=== PATIENT | female | born 1965 | race Caucasian/White ===

== ENCOUNTER 2016-11-15 16:29 | Emergency (ER) | payer SELFPAY ==
[~2016-11-15] VITALS: Ht 154.9 cm; Wt 55.1 kg
[~2016-11-15 16:29] MED LIST: AMOXICILLIN875 MG PO; CIPRO500 MG PO; CYMBALTA; FLAGYL500 MG PO; PERCOCET 5/31 TABLET PO; PHENERGAN; PREDNISONE20 M1 PO; PREVACID PO; PREVACID30 MG PO; PROMETHAZINE HC25 M1 PO; SYNTHROID PO; ZOFRAN4 MG PO
[2016-11-15 17:14] LABS: HEMATOCRIT 37.5 % (36.0-46.0); MCH 28.9 PG (29.0-34.0); MCHC 33.6 G/DL (30.0-36.0); MEAN PLAT.VOLUME 11.3 uM^3 (9.5-12.4); PLATELET COUNT 332 K/uL (156-360); RBC DIS.WIDTH-CV 12.9 % (11.8-14.6); RBC DIS.WIDTH-SD 40.5 % (39-53); RED BLOOD COUNT 4.36 M/uL (3.80-5.20); WHITE BLOOD COUNT 12.4 K/uL (4.1-10.2)
[2016-11-15 17:20] LABS: ADD MIUA? YES; BILIRUBIN NEGATIVE; BLOOD MODERATE; COLOR YELLOW ((YELLOW)); GLUCOSE (STRIP) NEGATIVE; KETONES NEGATIVE; LEUKOCYTES NEGATIVE; NITRITE NEGATIVE; PROTEIN (STRIP) NEGATIVE; SPECIFIC GRAVITY 1.023 (1.000-1.030); UROBILINOGEN 0.2 MG/DL (0.2-1.0)
[2016-11-15 17:24] LABS: CHLORIDE 103 mEq/L (99-109); SODIUM 139 mEq/L (136-147)
[2016-11-15 17:27] LABS: GLUCOSE 99 mg/dL (70-99)
[2016-11-15 17:28] LABS: ANION GAP 12 MEQ/L (2-14); TOTAL BILIRUBIN 0.2 mg/dL (0.0-1.0)
[2016-11-15 17:30] LABS: ALKALINE PHOSPHATASE 104 IU/L (3-129); GFR ESTIMATE (CALCULATED) > 59 mL/min/
[2016-11-15 17:31] LABS: UREA NITROGEN (BUN) 13 mg/dL (9-23)
[2016-11-15 17:32] LABS: BACTERIA NONE SEEN /HPF; EPITHELIAL CELLS 1+ /HPF; MUCUS TRACE /LPF; UCUL ADDED? NO; WHITE BLOOD CELLS 0-5 /HPF (0-5)
[2016-11-15 17:34] LABS: LIPASE 44 U/L (1.0-51.0)
[2016-11-15 17:39] LABS: QUANTITATIVE HCG 4.1 MIU/ML
[2016-11-15] MEDS ORDERED: PREDNISONE10 MG PO (19:05)
[2016-11-15] MEDS ORDERED: PERCOCET 5/31 TABLET PO (19:05)
[2016-11-15] MEDS ORDERED: VALIUM5 MG PO (19:05)
[2016-11-15 19:31] VITALS: BP 121/78
== END 2016-11-15 19:33 | disposition home or self-care (01) ==
LOC: EME 16:29
DX: M54.9 Dorsalgia, unspecified (principal); J44.9 Chronic obstructive pulmonary disease, unspecified; G43.909 Migraine, unspecified, not intractable, without status migrainosus; K21.9 Gastro-esophageal reflux disease without esophagitis; F17.200 Nicotine dependence, unspecified, uncomplicated; Z88.8 Allergy status to other drugs, medicaments and biological substances
CPT/HCPCS: 80053; 81003; 83690; 84702; 85027; 99281; 99283; J1885; J7512

== ENCOUNTER 2017-05-11 16:09 | Inpatient (IN) | payer SELFPAY ==
[~2017-05-11] VITALS: Ht 167.6 cm; Wt 59.8 kg
[~2017-05-11 16:09] MED LIST changes: +PREDNISONE10 MG PO; +VALIUM5 MG PO
[2017-05-11 16:49] LABS: HEMATOCRIT 39.6 % (36.0-46.0); HEMOGLOBIN 13.5 G/DL (11.9-15.5); MCH 29.3 PG (29.0-34.0); MCHC 34.1 G/DL (30.0-36.0); MCV 86.1 FL (83-99); PLATELET COUNT 345 K/uL (156-360); RBC DIS.WIDTH-CV 13.1 % (11.8-14.6); RBC DIS.WIDTH-SD 40.8 % (39-53); WHITE BLOOD COUNT 13.8 K/uL (4.1-10.2)
[2017-05-11 17:03] LABS: ALBUMIN 4.3 g/dL (3.2-4.8); CHLORIDE 105 mEq/L (99-109); POTASSIUM 4.3 mEq/L (3.7-5.4); SODIUM 139 mEq/L (136-147)
[2017-05-11 17:05] LABS: GLUCOSE 184 mg/dL (70-99); TOTAL PROTEIN 7.5 g/dL (6.4-8.3)
[2017-05-11 17:07] LABS: TOTAL BILIRUBIN 0.2 mg/dL (0.0-1.0)
[2017-05-11 17:08] LABS: ALKALINE PHOSPHATASE 113 IU/L (3-129)
[2017-05-11 17:08] LABS: APPEARANCE CLEAR ((CLEAR)); BILIRUBIN NEGATIVE; BLOOD MODERATE; COLOR YELLOW ((YELLOW)); GLUCOSE (STRIP) 50; KETONES NEGATIVE; LEUKOCYTES NEGATIVE; NITRITE NEGATIVE; PROTEIN (STRIP) NEGATIVE; SPECIFIC GRAVITY 1.011 (1.000-1.030); UROBILINOGEN 0.2 MG/DL (0.2-1.0)
[2017-05-11 17:09] LABS: BACTERIA RARE /HPF; EPITHELIAL CELLS RARE /HPF; MUCUS TRACE /LPF; RED BLOOD CELLS 0-5 /HPF (0-5); UCUL ADDED? NO; WHITE BLOOD CELLS 0-5 /HPF (0-5)
[2017-05-11 17:09] LABS: CREATININE 1.3 mg/dL (0.6-1.3); GFR ESTIMATE (CALCULATED) 46 mL/min/
[2017-05-11 17:10] LABS: AST (GOT) 15 IU/L (2-34); UREA NITROGEN (BUN) 14 mg/dL (9-23)
[2017-05-11 17:11] LABS: ALT (GPT) 12 IU/L (3-49)
[2017-05-11 17:24] LABS: LIPASE 35 U/L (1.0-51.0)
[2017-05-12 02:06] VITALS: BP 121/63
[2017-05-12 06:19] LABS: PTT 27.7 SEC (25-37)
[2017-05-12 07:38] VITALS: BP 91/51
[2017-05-12 07:41] LABS: A/G RATIO 1.7 (1.1-1.8); ALBUMIN 3.8 G/DL (3.4-5.0); GLOBULINS 2.3 G/DL (2.3-3.5); TOTAL PROTEIN 6.1 G/DL (6.4-8.2)
[2017-05-12 12:50] VITALS: BP 113/61
[2017-05-12 14:46] VITALS: BP 118/68
[2017-05-12 17:55] VITALS: BP 100/53
[2017-05-13] VITALS: BP 120/72
[2017-05-13 06:50] VITALS: BP 109/62
[2017-05-13 11:28] VITALS: BP 111/57
[2017-05-13 11:50] LABS: ALBUMIN 3.43 G/DL (3.6-4.9); ALPHA-1 GLOBULIN 0.29 G/DL (0.15-0.40); ALPHA-2 GLOBULIN 0.88 G/DL (0.45-0.85); BETA-GLOBULIN 0.68 G/DL (0.65-1.15); GAMMA-GLOBULIN 0.82 G/DL (0.60-1.35)
[2017-05-13 16:14] VITALS: BP 128/58
[2017-05-13 19:30] VITALS: BP 104/54
[2017-05-14] VITALS (9 sets, daily range): BP systolic 104–132; BP diastolic 54–74
[2017-05-14 17:56] LABS: CHLORIDE 102 MEQ/L (99-109); POTASSIUM 3.9 MEQ/L (3.7-5.4); SODIUM 137 MEQ/L (136-147); UREA NITROGEN (BUN) 13 mg/dL (9-23)
[2017-05-14 17:59] LABS: CREATININE 0.6 MG/DL (0.6-1.3); GFR ESTIMATE (CALCULATED) > 59 mL/min/; GLUCOSE 99 mg/dL (70-99)
[2017-05-15 03:00] VITALS: BP 105/58
[2017-05-15 07:30] VITALS: BP 137/90
[2017-05-15 11:00] VITALS: BP 128/71
[2017-05-15 16:52] VITALS: BP 123/62
[2017-05-15 20:38] VITALS: BP 134/76
[2017-05-16 00:26] VITALS: BP 117/60
[2017-05-16 04:00] VITALS: BP 121/66
[2017-05-16 06:45] VITALS: BP 115/65
[2017-05-16 11:00] VITALS: BP 125/69
[2017-05-16 15:00] VITALS: BP 124/71
[2017-05-16 16:01] VITALS: BP 115/65
[2017-05-16] MEDS ORDERED: DOCUSATE SODIU100 MG PO (16:58)
[2017-05-16] MEDS ORDERED: DEXAMETHASONE4 MG PO (16:58)
[2017-05-16] MEDS ORDERED: FENTANYL1 EAC1 TD (16:58)
== END 2017-05-16 18:00 | disposition home or self-care (01) | DRG 840 ==
LOC: EME 16:09 → EDOF 05-12 00:36 → 5EAST 05-12 00:36 → ENRESERV 05-12 00:49 → 5EAST 05-12 01:41
PROVIDERS: Internal Medicine Hematology & Oncology; Nurse Practitioner Acute Care
PROC: 0JB73ZX Excision of Back Subcutaneous Tissue and Fascia, Percutaneous Approach, Diagnostic (ICD-10-PCS; principal; 2017-05-12)
DX: C90.30 Solitary plasmacytoma not having achieved remission (principal); G95.20 Unspecified cord compression; G83.4 Cauda equina syndrome; R26.2 Difficulty in walking, not elsewhere classified; J44.9 Chronic obstructive pulmonary disease, unspecified; K21.9 Gastro-esophageal reflux disease without esophagitis; E03.9 Hypothyroidism, unspecified; Z87.19 Personal history of other diseases of the digestive system; F17.210 Nicotine dependence, cigarettes, uncomplicated; Z90.710 Acquired absence of both cervix and uterus; Z90.49 Acquired absence of other specified parts of digestive tract; Z85.42 Personal history of malignant neoplasm of other parts of uterus; M54.9 Dorsalgia, unspecified; M53.86 Other specified dorsopathies, lumbar region; M79.9 Soft tissue disorder, unspecified; Z88.6 Allergy status to analgesic agent; Z88.5 Allergy status to narcotic agent; M48.56XA Collapsed vertebra, not elsewhere classified, lumbar region, initial encounter for fracture; S32.029A Unspecified fracture of second lumbar vertebra, initial encounter for closed fracture; J69.0 Pneumonitis due to inhalation of food and vomit; M48.061 Spinal stenosis, lumbar region without neurogenic claudication; C79.9 Secondary malignant neoplasm of unspecified site; K22.70 Barrett's esophagus without dysplasia
CPT/HCPCS: 71045; 71260; 72128; 72158; 74177; 77012; 77075; 77295; 77300; 77331; 77334; 77338; 77412; 77417; 80048; 80053; 81003; 83690; 83883 90; 84165; 85027; 85610; 85730; 86334; 88305; 88341 TC; 88342 TC; 94799; 99281; 99285; J0295; J1100; J1644; J1885; J2270; J2405; J3010; J7030; J7050; J8540

== ENCOUNTER 2017-05-19 09:39 | Inpatient (IN) | payer SELFPAY ==
[~2017-05-19] VITALS: Ht 156.2 cm; Wt 51.0 kg
[~2017-05-19 09:39] MED LIST changes: +DEXAMETHASONE4 MG PO; +DOCUSATE SODIU100 MG PO; +FENTANYL1 EAC1 TD
[2017-05-19 10:21] LABS: BASOPHIL (%) 0.2 % (0-1); BASOPHIL COUNT 0.1 K/uL (0-0.1); EOSINOPHIL (%) 0 % (0-5); HEMATOCRIT 39.2 % (36.0-46.0); HEMOGLOBIN 13.7 G/DL (11.9-15.5); IMMATURE GRANULOCYTE (%) 1.4 % (0.0-0.7); LYMPHOCYTE (%) 3.8 % (15-42); LYMPHOCYTE COUNT 0.8 K/uL (1.0-2.8); MCH 29.4 PG (29.0-34.0); MCHC 34.9 G/DL (30.0-36.0); MCV 84.1 FL (83-99); MONOCYTE (%) 6.1 % (3-12); MONOCYTE COUNT 1.4 K/uL (0-0.8); NEUTROPHIL (%) 88.5 % (45-76); NEUTROPHIL COUNT 19.4 K/uL (1.8-6.4); PLATELET COUNT 373 K/uL (156-360); RBC DIS.WIDTH-CV 12.9 % (11.8-14.6); RBC DIS.WIDTH-SD 38.8 % (39-53); RED BLOOD COUNT 4.66 M/uL (3.80-5.20)
[2017-05-19 10:29] LABS: ALBUMIN 3.9 g/dL (3.2-4.8); CHLORIDE 98 mEq/L (99-109); POTASSIUM 3.7 mEq/L (3.7-5.4); SODIUM 136 mEq/L (136-147)
[2017-05-19 10:32] LABS: GLUCOSE 104 mg/dL (70-99); TOTAL PROTEIN 6.9 g/dL (6.4-8.3)
[2017-05-19 10:34] LABS: TOTAL BILIRUBIN 0.5 mg/dL (0.0-1.0)
[2017-05-19 10:35] LABS: ALKALINE PHOSPHATASE 89 IU/L (3-129); CREATININE 0.7 mg/dL (0.6-1.3); GFR ESTIMATE (CALCULATED) > 59 mL/min/
[2017-05-19 10:36] LABS: UREA NITROGEN (BUN) 17 mg/dL (9-23)
[2017-05-19 10:37] LABS: AST (GOT) 22 IU/L (2-34)
[2017-05-19 10:38] LABS: ALT (GPT) 23 IU/L (3-49)
[2017-05-19 14:50] VITALS: BP 162/81
[2017-05-19 14:57] LABS: APPEARANCE CLOUDY ((CLEAR)); BILIRUBIN NEGATIVE; BLOOD SMALL; COLOR YELLOW ((YELLOW)); GLUCOSE (STRIP) NEGATIVE; KETONES 80; LEUKOCYTES MODERATE; NITRITE NEGATIVE; PROTEIN (STRIP) 30; SPECIFIC GRAVITY 1.018 (1.000-1.030)
[2017-05-19 15:21] LABS: RED BLOOD CELLS RARE /HPF (0-5)
[2017-05-19 15:22] LABS: AMORPHOUS PHOSPHATE CRYSTALS 3+; BACTERIA 2+ /HPF; EPITHELIAL CELLS RARE /HPF; MUCUS NONE SEEN /LPF; UCUL ADDED? YES
[2017-05-19 19:10] VITALS: BP 106/65
[2017-05-19 21:00] VITALS: BP 125/72
[2017-05-19 23:20] VITALS: BP 125/72
[2017-05-20 03:35] VITALS: BP 121/70
[2017-05-20 07:40] VITALS: BP 129/71
[2017-05-20 11:50] VITALS: BP 118/58
[2017-05-20 15:43] VITALS: BP 137/65
[2017-05-20 20:50] VITALS: BP 139/67
[2017-05-21 00:13] VITALS: BP 141/99
[2017-05-21 03:53] VITALS: BP 113/58
[2017-05-21 08:00] VITALS: BP 138/68
[2017-05-21 16:25] VITALS: BP 123/64
[2017-05-21 19:35] VITALS: BP 119/59
[2017-05-21 23:42] VITALS: BP 118/66
[2017-05-22 08:04] VITALS: BP 125/69
[2017-05-22 15:15] VITALS: BP 116/59
[2017-05-22 23:43] VITALS: BP 113/56
[2017-05-23 07:00] VITALS: BP 114/66
== END 2017-05-23 16:18 | disposition short-term general hospital (02) | DRG 543 ==
LOC: EME 09:39 → 2EASTP 12:34 → EDOF 12:34 → ENRESERV 12:58 → 2EASTP 14:50
PROVIDERS: Emergency Medicine
DX: M48.56XA Collapsed vertebra, not elsewhere classified, lumbar region, initial encounter for fracture (principal); C90.30 Solitary plasmacytoma not having achieved remission; G83.4 Cauda equina syndrome; E03.9 Hypothyroidism, unspecified; K21.9 Gastro-esophageal reflux disease without esophagitis; G43.909 Migraine, unspecified, not intractable, without status migrainosus; J44.9 Chronic obstructive pulmonary disease, unspecified; K52.9 Noninfective gastroenteritis and colitis, unspecified; Z66 Do not resuscitate; F17.200 Nicotine dependence, unspecified, uncomplicated; Z85.038 Personal history of other malignant neoplasm of large intestine; Z85.42 Personal history of malignant neoplasm of other parts of uterus; Z88.5 Allergy status to narcotic agent; Z88.6 Allergy status to analgesic agent
CPT/HCPCS: 72158; 77336; 77412; 80053; 81003; 85025; 87077; 87086; 87186; 99281; 99285; J1644; J1885; J3010; J8540; S0028

== ENCOUNTER → 2017-06-17 | Outpatient (CLI) | payer OTHER ==
[~2017-06-17] MED LIST changes: +OXYCONTIN15 MG PO
[2017-06-17 10:32] LABS: INTER. NORMALIZED RATIO 1.2
[2017-06-17 10:35] LABS: BASOPHIL (%) 0.8 % (0-1); BASOPHIL COUNT 0.1 K/uL (0-0.1); EOSINOPHIL (%) 1.7 % (0-5); EOSINOPHIL COUNT 0.2 K/uL (0-0.3); HEMOGLOBIN 10.7 G/DL (11.9-15.5); IMMATURE GRANULOCYTE (%) 0.5 % (0.0-0.7); LYMPHOCYTE COUNT 1.8 K/uL (1.0-2.8); MCH 27.7 PG (29.0-34.0); MCHC 32.4 G/DL (30.0-36.0); MCV 85.5 FL (83-99); MONOCYTE (%) 12.7 % (3-12); MONOCYTE COUNT 1.3 K/uL (0-0.8); NEUTROPHIL (%) 67.3 % (45-76); NEUTROPHIL COUNT 6.9 K/uL (1.8-6.4); PLATELET COUNT 475 K/uL (156-360); PTT 32.4 SEC (25-37); RBC DIS.WIDTH-CV 14.1 % (11.8-14.6); RBC DIS.WIDTH-SD 43.6 % (39-53); WHITE BLOOD COUNT 10.3 K/uL (4.1-10.2)
[2017-06-17 10:36] LABS: RED BLOOD COUNT 3.86 M/uL (3.80-5.20)
[2017-06-17 11:06] LABS: ABS NEUTROPHIL COUNT 6.9; ANISOCYTOSIS 1+; ATYPICAL LYMPHOCYTE 5.5 %; BASOPHILS 1.8 %; EOSINOPHIL ABS CT 0.2; EOSINOPHILS 1.8 % (0-5.0); HYPOCHROMASIA 1+; LYMPHOCYTES 15.4 % (15.0-45.0); MACROCYTES 1+; MONOCYTES 8.2 % (0-9.0); PLAT.SUFFICIENCY ADEQUATE; POLYCHROMASIA 2+; SEG.NEUTROPHILS 67.3 % (46.0-76.0)
[2017-06-20 13:53] LABS: NUMBER OF MARKERS 24; SPECIMEN TYPE BONE MARROW; SPECIMEN VIABILITY 98
== END | disposition home or self-care (01) ==
LOC: OPR 09:30 → EDSTATUS 10:00 → OPR 10:00
PROVIDERS: Internal Medicine Hematology & Oncology
PROC: 07DR3ZX Extraction of Iliac Bone Marrow, Percutaneous Approach, Diagnostic (ICD-10-PCS; principal; 2017-06-17)
DX: D47.2 Monoclonal gammopathy (principal); F17.200 Nicotine dependence, unspecified, uncomplicated; Z85.42 Personal history of malignant neoplasm of other parts of uterus; D64.9 Anemia, unspecified
CPT/HCPCS: 77012; 85007; 85025; 85610; 85730; J3010